=== PATIENT | female | born 1960 | race Caucasian/White ===

== ENCOUNTER 2018-04-12 20:07 | Emergency (ER) | payer OTHER ==
[~2018-04-12] VITALS: Ht 160 cm; Wt 81.6 kg
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
--- NOTE | 2018-04-12 20:08 | NUR ---
GLORIA RICHARDSON AT [facility]
[2018-04-12] MEDS ORDERED: ONDANSETRON 4 MG TAB.RAPDIS ONE (21:20)
[2018-04-12] MEDS ORDERED: HYDROCODONE/APAP 5/325MG 1 EACH TABLET ONE (21:20)
--- NOTE | 2018-04-12 21:25 | NUR ---
PT OFF TO CT
[2018-04-12] MEDS ORDERED: ONDANSETRON 4 MG TAB.RAPDIS PO ONE (21:30)
[2018-04-12] MEDS ORDERED: HYDROCODONE/APAP 5/325MG 1 EACH TABLET PO ONE (21:30)
--- NOTE | 2018-04-12 21:35 | NUR ---
PT BACK FROM CT
--- NOTE | 2018-04-12 22:41 | NUR ---
CALLED [facility] FOR PENDING CT HEAD/ CT NECK RESULTS. PER [employer] RESULTS, INFORMED YUMI CASTLE
[2018-04-12 23:03] VITALS: BP 162/109
== END 2018-04-12 23:03 | disposition home or self-care (01) ==
LOC: ER 20:11
DX: S09.8XXA Other specified injuries of head, initial encounter (principal); Z88.1 Allergy status to other antibiotic agents; V49.59XA Passenger injured in collision with other motor vehicles in traffic accident, initial encounter; Y93.89 Activity, other specified; Y92.413 State road as the place of occurrence of the external cause; Y99.8 Other external cause status
CPT/HCPCS: 70450; 72125; 99284; A4606; L0172; Q0162; Z7610